=== PATIENT | female | born 1990 | race American Indian/Alaskan Native ===

== ENCOUNTER 2017-07-22 20:24 | Emergency (ER) | payer MEDICAID, OTHER ==
--- NOTE | 2017-07-22 20:55 | EDM.PDOC ---
ED HPI GENERAL MEDICAL PROBLEM - General Chief Complaint: Genitourinary Problem Stated Complaint: KIDNEY PAIN Time Seen by Provider: 07/22/17 20:45 - History of Present Illness INITIAL COMMENTS - FREE TEXT/NARRATIVE: HISTORY AND PHYSICAL: History of present illness: The patient is a 26 rolled female who is a 4 para 3003 with 3 prior vaginal deliveries who presents at almost 19 weeks and complains of 2 days of dysuria frequency and malodorous urine. She has not had any nausea vomiting or fever and has no discrete flank pain but does have some lower back pain and some lower abdominal discomfort more on the left. She has no gynecologic history and had a cholecystectomy. She's had no vaginal bleeding and she says she is starting to feel some movement. She is following with an OB M.D. not affiliated with our hospital and has had an ultrasound are ready documenting the . She's been eating and drinking normally and has no upper respiratory symptoms. She has no hematuria and no history of kidney stones. She says the discomfort and the urinary symptoms have been gradually progressing over the last 2 days and were not sudden in onset. Review of systems: As per history of present illness and below otherwise all systems reviewed and negative. Past medical history: As per history of present illness and as reviewed below otherwise noncontributory. Surgical history: As per history of present illness and as reviewed below otherwise noncontributory. Social history: No reported history of drug or alcohol abuse. Family history: As per history of present illness and as reviewed below otherwise noncontributory. Physical exam: Gen.: Well-developed well-nourished female who moves easily in the ED without distress. HEENT: Atraumatic, normocephalic, negative for conjunctival pallor or scleral icterus, mucous membranes moist, throat clear, neck supple, nontender, trachea midline. Lungs: Clear to auscultation, breath sounds equal bilaterally, chest nontender. Heart: S1S2, regular rate and rhythm no overt murmurs Abdomen: Soft, nondistended, nontender. Negative for masses or hepatosplenomegaly. Negative for costovertebral tenderness. Pelvis: Stable nontender. Genitourinary: Deferred. Rectal: Deferred. Extremities: Atraumatic, negative for cords or calf pain. Neurovascular unremarkable. Neuro: Awake, alert, oriented. Cranial nerves II through XII unremarkable. Cerebellum unremarkable. Motor and sensory unremarkable throughout. Exam nonfocal. Diagnostics: UA urine culture CBC CMP heart tones Therapeutics: [] FHT per nursing 144-145 Impression: UTI, second trimester stable Definitive disposition and diagnosis as appropriate pending reevaluation and review of above. Treatments BENEFIT SPECIALIST: Reports: Acetaminophen urinary Pain Score (Numeric/FACES): 7 - Related Data Allergies Allergy/AdvReac Type Severity Reaction Status Date / Time No Known Allergies Allergy Verified 07/22/17 20:39 Home Meds: Home Meds Pnv No.95/Ferrous Fum/Folic AC [ Multivitamin Tablet] 1 tab PO DAILY 03/31 [History] Past Medical History - Past Health History Medical/Surgical History: Denies Medical/Surgical History HEENT History: Reports: None Cardiovascular History: Reports: None Respiratory History: Reports: None Gastrointestinal History: Reports: None Genitourinary History: Reports: None, UTI, Recurrent [employer] History: Reports: Musculoskeletal History: Reports: None Neurological History: Reports: None Psychiatric History: Reports: Anxiety Endocrine/Metabolic History: Reports: None Hematologic History: Reports: None Immunologic History: Reports: None Oncologic (Cancer) History: Reports: None Dermatologic History: Reports: None - Infectious Disease History Infectious Disease History: Reports: Chicken Pox - Past Surgical History Head Surgeries/Procedures: Reports: None Female Surgical History: Reports: None Social & Family History - Family History Family Medical History: Noncontributory - Tobacco Use Smoking Status *Q: Never Smoker Years of Tobacco use: 5 Used Tobacco, but Quit: No - Caffeine Use Caffeine Use: Reports: Tea - Recreational Drug Use Recreational Drug Use: No ED ROS GENERAL - Review of Systems Review Of Systems: ROS reveals no pertinent complaints other than HPI. ED EXAM, GENERAL - Physical Exam Exam: See Below (See dictation) Course - Vital Signs Last Recorded V/S: Last Vital Signs Temp 36.8 C 07/22/17 20:41 Pulse 77 07/22/17 20:41 Resp 18 07/22/17 20:41 BP 126/70 07/22/17 20:41 Pulse Ox 98 07/22/17 20:41 - Orders/Labs/Meds Orders: Active Orders 24 hr Category Date Time Status Communication Order [RC] STAT Care 07/22/17 20:52 Active CULTURE URINE [RM] Stat Lab 07/22/17 20:40 Received Labs: Laboratory Tests 07/22/17 07/22/17 07/22/17 Range/Units 20:40 21:23 21:23 WBC 8.48 (4.0-11.0) K/uL RBC 3.86 L (4.30-5.90) M/uL Hgb 11.5 L (12.0-16.0) g/dL Hct 34.1 L (36.0-46.0) % MCV 88.3 (80.0-98.0) fL MCH 29.8 (27.0-32.0) pg MCHC 33.7 (31.0-37.0) g/dL RDW Std Deviation 45.2 (28.0-62.0) fl RDW Coeff of Fahad 14 (11.0-15.0) % Plt Count 245 (150-400) K/uL MPV 10.00 (7.40-12.00) fL Neut % (Auto) 70.0 (48.0-80.0) % Lymph % (Auto) 22.5 (16.0-40.0) % [place] % (Auto) 5.7 (0.0-15.0) % Eos % (Auto) 1.7 (0.0-7.0) % Baso % (Auto) 0.1 (0.0-1.5) % Neut # (Auto) 5.9 H (1.4-5.7) K/uL Lymph # (Auto) 1.9 (0.6-2.4) K/uL [place] # (Auto) 0.5 (0.0-0.8) K/uL Eos # (Auto) 0.1 (0.0-0.7) K/uL Baso # (Auto) 0.0 (0.0-0.1) K/uL Nucleated RBC % 0.0 /100WBC Nucleated RBCs # 0 K/uL Sodium 139 (136-146) mmol/L Potassium 3.8 (3.5-5.1) mmol/L Chloride 111 H (98-110) mmol/L Carbon Dioxide 19 L (21-31) mmol/L BUN 11 (6.0-23.0) mg/dL Creatinine 0.6 (0.6-1.5) mg/dL Est Cr Clr Drug Dosing 127.85 mL/min Estimated GFR (MDRD) > 60.0 ml/min Glucose 97 (60-110) mg/dL Calcium 8.7 L (8.8-10.8) mg/dL Total Bilirubin 0.2 (0.1-1.5) mg/dL AST 15 (5-40) IU/L ALT 15 (8-54) IU/L Alkaline Phosphatase 74 (40-150) Total Protein 6.3 (6.0-8.0) g/dL Albumin 3.3 L (3.5-5.0) g/dL Globulin 3.0 (2.0-3.5) g/dL Albumin/Globulin Ratio 1.1 L (1.3-2.8) Urine Color YELLOW Urine Appearance SLT CLOUDY Urine pH 6.0 (5.0-8.0) Ur Specific [place] 1.025 (1.001-1.035) Urine Protein TRACE (NEGATIVE) mg/dL Urine Glucose (UA) NEGATIVE (NEGATIVE) mg/dL Urine Ketones TRACE H (NEGATIVE) mg/dL Urine Occult Blood SMALL H (NEGATIVE) Urine Nitrite POSITIVE H (NEGATIVE) Urine Bilirubin NEGATIVE (NEGATIVE) Urine Urobilinogen 0.2 (<2.0) EU/dL Ur Leukocyte Esterase MODERATE (NEGATIVE) Urine RBC 1-3 (0-2/HPF) Urine WBC 100-150 (0-5/HPF) Ur Epithelial Cells OCCASIONAL (NONE-FEW) Urine Bacteria 2+ H (NEGATIVE) Urine Mucus RARE (NONE-MOD) Meds: Medications Discontinued Medications Generic Name Dose Route Start Last Admin Trade Name Freq PRN Reason Stop Dose Admin Ceftriaxone Sodium 1,000 mg/ 4 mls @ 4 mls/sec 07/22/17 21:34 07/22/17 21:50 Lidocaine HCl IM 07/22/17 21:35 4 mls/sec ONETIME ONE Administration Departure - Departure Time of Disposition: 22:04 Disposition: Home, Self-Care 01 Condition: Good Clinical Impression: UTI, Urinary tract infectious disease, Second trimester - Discharge Information Referrals: PCP,None [Primary Care Provider] - Forms: ED Department Discharge Additional Instructions: The following information is given to patients seen in the emergency department who are being discharged to home. This information is to outline your options for follow-up care. We provide all patients seen in our emergency department with a follow-up referral. The need for follow-up, as well as the timing and circumstances, are variable depending upon the specifics of your emergency department visit. If you don't have a primary care physician on staff, we will provide you with a referral. We always advise you to contact your personal physician following an emergency department visit to inform them of the circumstance of the visit and for follow-up with them and/or the need for any referrals to a consulting specialist. The emergency department will also refer you to a specialist when appropriate. This referral assures that you have the opportunity for followup care with a specialist. All of these measure are taken in an effort to provide you with optimal care, which includes your followup. Under all circumstances we always encourage you to contact your private physician who remains a resource for coordinating your care. When calling for followup care, please make the office aware that this follow-up is from your recent emergency room visit. If for any reason you are refused follow-up, please contact the [facility] emergency department at and ask to speak to the emergency department charge nurse. [facility] [address] [address] Please take antibiotics as directed and you can start them tomorrow. Push hydration and avoid caffeinated products. Please call and follow-up with your OB M.D. or one of our clinic providers using resources given to above. Her urine culture will take several days to complete and if there is a change in care plan he will be contacted by the emergency department. Return to ER as needed and as discussed. Use only Tylenol for discomfort. - My Orders Last 24 Hours: My Active Orders 07/22/17 20:40 CULTURE URINE [RM] Stat 07/22/17 20:52 Communication Order [RC] STAT - Assessment/Plan Last 24 Hours: My Active Orders 07/22/17 20:40 CULTURE URINE [RM] Stat 07/22/17 20:52 Communication Order [RC] STAT
[2017-07-22] MEDS ORDERED: cefTRIAXone 1,000 MG in Lidocaine 1% 4 ML IM ONE (21:34)
[2017-07-22 21:59] LABS: CHLORIDE,CL 111 mmol/L (98-110); SODIUM,NA 139 mmol/L (136-146)
== END 2017-07-22 22:23 | disposition home or self-care (01) ==
LOC: MW.ED 20:24
DX: O23.42 Unspecified infection of urinary tract in pregnancy, second trimester (principal); Z3A.19 19 weeks gestation of pregnancy
CPT/HCPCS: 36415; 80053; 81001; 85025; 87086; 87088; 87186; 96372; 99283; J0696; 99284